=== PATIENT | female | born 1960 | race Caucasian/White ===

== ENCOUNTER → 2016-06-11 | Outpatient (REF) | payer OTHER ==
[2016-06-11 19:09] LABS: BASO % 0.4 % (0.0-1.0); EOS # 0.1 K/mm3 (0.0-0.50); EOS % 3.7 % (0.0-3.0); LARGE UNSTAINED CELL # 0.1 K/mm3 (0.0-0.4); LARGE UNSTAINED CELL % 2.5 % (0.0-4.0); LYMPH # 1.6 K/mm3 (1.5-4.5); LYMPH % 37.6 % (24.0-44.0); MEAN CORPUSCULAR HEMOGLOBIN 31.9 pg (27.0-33.0); MEAN CORPUSCULAR VOLUME 93.8 fl (80.0-96.0); MONO # 0.2 K/mm3 (0.0-0.8); MONO % 6.2 % (0.0-5.0); NEUTROPHILS # 1.9 K/mm3 (1.8-7.7); NEUTROPHILS % 49.7 % (36.0-66.0); PLATELET COUNT, AUTOMATED 215 k/mm3 (150-450); RED CELL DISTRIBUTION WIDTH 13.1 % (11.5-14.5); WHITE BLOOD COUNT 3.9 K/mm3 (4.0-10.0)
[2016-06-11 19:12] LABS: ALBUMIN 3.7 GM/DL (3.2-5.2); ALBUMIN/GLOBULIN RATIO 1.19 (1.00-1.93); ALKALINE PHOSPHATASE 43 U/L (45-117); ALT/SGPT 30 U/L (12-78); ANION GAP 6 MEQ/L (8-16); AST/SGOT 19 U/L (15-37); BILIRUBIN,TOTAL 0.4 MG/DL (0.2-1.0); BLOOD UREA NITROGEN 23 MG/DL (7-18); CALCIUM LEVEL 8.5 MG/DL (8.5-10.1); CARBON DIOXIDE LEVEL 29 MEQ/L (21-32); CHLORIDE LEVEL 108 MEQ/L (98-107); CHOLESTEROL LEVEL 235 MG/DL (<200); CREATININE FOR GFR 0.85 MG/DL (0.55-1.02); FREE T4 0.74 NG/DL (0.76-1.46); GLOMERULAR FILTRATION RATE > 60.0 (>51); GLUCOSE, FASTING 89 MG/DL (70-105); POTASSIUM SERUM 4.5 MEQ/L (3.5-5.1); SODIUM LEVEL 143 MEQ/L (136-145); TOTAL PROTEIN 6.8 GM/DL (6.4-8.2); TRIGLYCERIDES LEVEL 166 MG/DL (<150)
== END ==
LOC: M SFHCCAPE 07:59
PROVIDERS: ATTEND Physician Assistant
DX: E78.00 Pure hypercholesterolemia, unspecified (principal); Z83.3 Family history of diabetes mellitus

== ENCOUNTER → 2016-08-20 | Outpatient (REF) | payer OTHER | LOC: M SFHCCAPE 09:51 | PROVIDERS: ATTEND Physician Assistant | DX: Z01.419 Encounter for gynecological examination (general) (routine) without abnormal findings (principal) ==

== ENCOUNTER → 2016-09-25 | Outpatient (REF) | payer OTHER ==
[2016-09-25 17:11] LABS: ALBUMIN 3.9 GM/DL (3.2-5.2); ALKALINE PHOSPHATASE 42 U/L (45-117); ALT/SGPT 32 U/L (12-78); ANION GAP 10 MEQ/L (8-16); AST/SGOT 24 U/L (15-37); BILIRUBIN,TOTAL 0.5 MG/DL (0.2-1.0); BLOOD UREA NITROGEN 19 MG/DL (7-18); CALCIUM LEVEL 8.8 MG/DL (8.5-10.1); CARBON DIOXIDE LEVEL 24 MEQ/L (21-32); CHLORIDE LEVEL 103 MEQ/L (98-107); CHOLESTEROL LEVEL 224 MG/DL (<200); CREATININE FOR GFR 0.89 MG/DL (0.55-1.02); GLOMERULAR FILTRATION RATE > 60.0 (>51); GLUCOSE, FASTING 94 MG/DL (70-105); POTASSIUM SERUM 4.2 MEQ/L (3.5-5.1); SODIUM LEVEL 137 MEQ/L (136-145); TOTAL PROTEIN 6.9 GM/DL (6.4-8.2); TRIGLYCERIDES LEVEL 113 MG/DL (<150)
[2016-09-25 17:35] LABS: BASO % 0.6 % (0.0-1.0); EOS # 0.1 K/mm3 (0.0-0.50); EOS % 2.1 % (0.0-3.0); LARGE UNSTAINED CELL # 0.1 K/mm3 (0.0-0.4); LARGE UNSTAINED CELL % 3.2 % (0.0-4.0); LYMPH # 1.8 K/mm3 (1.5-4.5); LYMPH % 45.9 % (24.0-44.0); MEAN CORPUSCULAR HEMOGLOBIN 32.1 pg (27.0-33.0); MEAN CORPUSCULAR HGB CONC 34.5 g/dl (32.0-36.5); MEAN CORPUSCULAR VOLUME 93.2 fl (80.0-96.0); MONO # 0.3 K/mm3 (0.0-0.8); MONO % 6.8 % (0.0-5.0); NEUTROPHILS # 1.7 K/mm3 (1.8-7.7); NEUTROPHILS % 41.5 % (36.0-66.0); PLATELET COUNT, AUTOMATED 228 k/mm3 (150-450)
== END ==
LOC: M SFHCCAPE 07:13
PROVIDERS: ATTEND Physician Assistant
DX: E78.2 Mixed hyperlipidemia (principal); R94.6 Abnormal results of thyroid function studies

== ENCOUNTER → 2017-04-06 | Outpatient (REF) | payer OTHER ==
[2017-04-06 17:31] LABS: ALBUMIN 3.7 GM/DL (3.2-5.2); ALBUMIN/GLOBULIN RATIO 1.09 (1.00-1.93); ALKALINE PHOSPHATASE 53 U/L (45-117); ALT/SGPT 23 U/L (12-78); ANION GAP 5 MEQ/L (8-16); AST/SGOT 17 U/L (7-37); BILIRUBIN,TOTAL 0.5 MG/DL (0.2-1.0); BLOOD UREA NITROGEN 19 MG/DL (7-18); CALCIUM LEVEL 8.6 MG/DL (8.5-10.1); CARBON DIOXIDE LEVEL 29 MEQ/L (21-32); CHLORIDE LEVEL 108 MEQ/L (98-107); CHOLESTEROL LEVEL 199 MG/DL (<200); CHOLESTEROL RISK RATIO 2.763 (<5); CREATININE FOR GFR 0.86 MG/DL (0.55-1.30); FREE T4 0.81 NG/DL (0.76-1.46); GLOMERULAR FILTRATION RATE > 60.0 (>51); GLUCOSE, FASTING 96 MG/DL (70-100); HDL CHOLESTEROL 72 MG/DL (>40); LDL CHOLESTEROL 113.6 MG/DL (<100); NON-HDL-C 127 MG/DL; POTASSIUM SERUM 4.1 MEQ/L (3.5-5.1); SODIUM LEVEL 142 MEQ/L (136-145); TOTAL PROTEIN 7.1 GM/DL (6.4-8.2); TRIGLYCERIDES LEVEL 67 MG/DL (<150)
== END ==
LOC: M SFHCCAPE 07:08
DX: E78.2 Mixed hyperlipidemia (principal)
CPT/HCPCS: 84443

== ENCOUNTER → 2017-12-22 | Outpatient (REF) | payer OTHER ==
[2017-12-22 22:05] LABS: FREE T4 0.69 NG/DL (0.76-1.46)
== END ==
LOC: M SFHCCAPE 07:04
DX: E03.9 Hypothyroidism, unspecified (principal)

== ENCOUNTER → 2018-01-27 | Outpatient (CLI) | payer BC, OTHER ==
[2018-01-27 13:59] LABS: D-DIMER QUANT < 270 ng/ml (<500)
[2018-01-27 14:01] LABS: ALBUMIN/GLOBULIN RATIO 1.21 (1.00-1.93); ALKALINE PHOSPHATASE 51 U/L (45-117); ALT/SGPT 28 U/L (12-78); ANION GAP 7 MEQ/L (8-16); AST/SGOT 17 U/L (7-37); BILIRUBIN,TOTAL 0.4 MG/DL (0.2-1.0); BLOOD UREA NITROGEN 19 MG/DL (7-18); CARBON DIOXIDE LEVEL 29 MEQ/L (21-32); CHLORIDE LEVEL 103 MEQ/L (98-107); CK-MB VALUE MASS < 1.0 NG/ML (<3.6); CPK CREATINE PHOSPHOKINASE 67 U/L (26-192); CREATININE FOR GFR 0.88 MG/DL (0.55-1.30); FREE T3 3.3 PG/ML (2.2-4.0); FREE T4 0.69 NG/DL (0.76-1.46); GLOMERULAR FILTRATION RATE > 60.0 (>51); GLUCOSE, FASTING 92 MG/DL (70-100); MB/CK RELATIVE INDEX 1.49 (< OR =4); MYOGLOBIN 47 NG/ML (13-71); POTASSIUM SERUM 3.9 MEQ/L (3.5-5.1); SODIUM LEVEL 139 MEQ/L (136-145); TOTAL PROTEIN 7.3 GM/DL (6.4-8.2); TROPONIN I < 0.02 NG/ML (< 0.10)
[2018-01-27 14:03] LABS: TOTAL T3 124.9 NG/DL (60.0-181.0)
== END ==
LOC: M LAB 11:52
DX: R07.9 Chest pain, unspecified (principal); E03.9 Hypothyroidism, unspecified
CPT/HCPCS: 82550

== ENCOUNTER → 2018-02-09 | Outpatient (CLI) | payer BC, OTHER | LOC: M RAD 13:23 | DX: M79.622 Pain in left upper arm (principal); L90.5 Scar conditions and fibrosis of skin; E03.9 Hypothyroidism, unspecified; M54.2 Cervicalgia | CPT/HCPCS: 76536 ==

== ENCOUNTER → 2018-02-15 | Outpatient (REF) | payer OTHER ==
[2018-02-15 17:03] LABS: BASO % 0.6 % (0.0-1.0); EOS # 0.2 10^3/uL (0.0-0.50); EOS % 3.2 % (0.0-3.0); LYMPH # 1.9 10^3/uL (1.5-4.5); LYMPH % 40.1 % (24.0-44.0); MEAN CORPUSCULAR HEMOGLOBIN 32.3 pg (27.0-33.0); MEAN CORPUSCULAR HGB CONC 34.2 g/dl (32.0-36.5); MEAN CORPUSCULAR VOLUME 94.5 fl (80.0-96.0); MONO # 0.3 10^3/uL (0.0-0.8); MONO % 6.1 % (0.0-5.0); NEUTROPHILS # 2.4 10^3/uL (1.8-7.7); NEUTROPHILS % 49.8 % (36.0-66.0); PLATELET COUNT, AUTOMATED 223 10^3/uL (150-450); RED BLOOD COUNT 4.02 10^6/uL (4.00-5.40); WHITE BLOOD COUNT 4.7 10^3/uL (4.0-10.0)
[2018-02-15 17:14] LABS: ALBUMIN 3.5 GM/DL (3.2-5.2); ALT/SGPT 21 U/L (12-78); BILIRUBIN,TOTAL 0.4 MG/DL (0.2-1.0); BLOOD UREA NITROGEN 21 MG/DL (7-18); CALCIUM LEVEL 8.2 MG/DL (8.5-10.1); CARBON DIOXIDE LEVEL 27 MEQ/L (21-32); CHLORIDE LEVEL 108 MEQ/L (98-107); CHOLESTEROL LEVEL 219 MG/DL (<200); CREATININE FOR GFR 0.92 MG/DL (0.55-1.30); FREE T4 0.77 NG/DL (0.76-1.46); GLOMERULAR FILTRATION RATE > 60.0 (>51); GLUCOSE, FASTING 92 MG/DL (70-100); HDL CHOLESTEROL 50 MG/DL (>40); LDL CHOLESTEROL 139 MG/DL (<100); NON-HDL-C 169 MG/DL; POTASSIUM SERUM 4.2 MEQ/L (3.5-5.1); SODIUM LEVEL 144 MEQ/L (136-145); TOTAL PROTEIN 6.5 GM/DL (6.4-8.2); TRIGLYCERIDES LEVEL 152 MG/DL (<150)
[2018-02-15 17:20] LABS: HEMOGLOBIN A1c 5.4 %
== END ==
LOC: M SFHCCAPE 07:31
PROVIDERS: ATTEND Physician Assistant
DX: E03.9 Hypothyroidism, unspecified (principal); E78.2 Mixed hyperlipidemia

== ENCOUNTER → 2019-05-09 | Outpatient (REF) | payer OTHER ==
[2019-05-09 16:57] LABS: BASO % 0.5 % (0.0-1.0); EOS # 0.1 10^3/uL (0.0-0.5); EOS % 1.8 % (0.0-3.0); HEMATOCRIT 38.8 % (36.0-47.0); LYMPH # 1.6 10^3/uL (1.5-5.0); LYMPH % 39.3 % (24.0-44.0); MEAN CORPUSCULAR HEMOGLOBIN 31.6 pg (27.0-33.0); MEAN CORPUSCULAR HGB CONC 33.5 g/dl (32.0-36.5); MEAN CORPUSCULAR VOLUME 94.2 fl (80.0-96.0); MONO # 0.3 10^3/uL (0.0-0.8); MONO % 6.5 % (0.0-5.0); NEUTROPHILS % 51.4 % (36.0-66.0); PLATELET COUNT, AUTOMATED 193 10^3/uL (150-450); RED BLOOD COUNT 4.12 10^6/uL (4.00-5.40)
[2019-05-09 17:12] LABS: ALBUMIN 3.7 GM/DL (3.2-5.2); ALT/SGPT 29 U/L (12-78); BILIRUBIN,TOTAL 0.4 MG/DL (0.2-1.0); BLOOD UREA NITROGEN 22 MG/DL (7-18); CALCIUM LEVEL 8.6 MG/DL (8.5-10.1); CARBON DIOXIDE LEVEL 28 MEQ/L (21-32); CHLORIDE LEVEL 108 MEQ/L (98-107); CHOLESTEROL LEVEL 223 MG/DL (<200); CHOLESTEROL RISK RATIO 4.207 (<5); CREATININE FOR GFR 0.82 MG/DL (0.55-1.30); FREE T4 0.85 NG/DL (0.76-1.46); GLOMERULAR FILTRATION RATE > 60.0 (>51); GLUCOSE, FASTING 93 MG/DL (70-100); HDL CHOLESTEROL 53 MG/DL (>40); LDL CHOLESTEROL 149 MG/DL (<100); NON-HDL-C 170 MG/DL; POTASSIUM SERUM 4.2 MEQ/L (3.5-5.1); SODIUM LEVEL 140 MEQ/L (136-145); TOTAL PROTEIN 6.9 GM/DL (6.4-8.2); TRIGLYCERIDES LEVEL 105 MG/DL (<150)
[2019-05-09 17:20] LABS: HEMOGLOBIN A1c 5.7 %
== END ==
LOC: M SFHCCAPE 08:35
PROVIDERS: ATTEND Physician Assistant
DX: E78.2 Mixed hyperlipidemia (principal); E03.9 Hypothyroidism, unspecified; Z68.32 Body mass index [BMI] 32.0-32.9, adult

== ENCOUNTER → 2019-10-17 | Outpatient (CLI) | payer BC, OTHER ==
[~2019-10-17] MED LIST: GASTROGRAFIN SOLUTION 30ML (Q9963) As Ordered ONE; GASTROGRAFIN SOLUTION 30ML (Q9963) ONE; ISOVUE-370 76% 100ML VIAL As Ordered ONE; ISOVUE-370 76% 100ML VIAL ONE
--- NOTE | 2019-11-25 11:39 | REP ---
CT ABDOMEN AND PELVIS WITHOUT AND WITH IV CONTRAST: WITH ORAL CONTRAST HISTORY: Right flank pain. COMPARISON: None. CT CONTRAST DOSE: 100 mL of intravenous Isovue-[address] FINDINGS: Digital preliminary activities director scouting radiograph demonstrates an unremarkable bowel gas pattern. The lung bases are clear on axial CT images. No pleural effusion or upper abdominal ascites is seen. The liver and the spleen are normal in size and homogeneous in texture on pre- and postcontrast images. No abnormality is noted in the gallbladder or the pancreas. Small and large bowel loops are normal in the abdomen and pelvis. No retroperitoneal mass or adenopathy is observed. Normal caliber aorta is seen. The kidneys enhance symmetrically and are morphologically intact. No hydronephrosis or mass lesion is seen. There is a tiny cortical cyst in the upper pole of the right kidney. No urinary tract calculus is seen. Urinary bladder is intact. The uterus is tipped to the right. No uterine or ovarian mass lesion is seen. Bone window settings show no bony destructive lesion. A short normal appendix is seen in the right lower quadrant. IMPRESSION: No acute abdominal or pelvic abnormality. MTDD
== END ==
LOC: M RAD 12:17
PROVIDERS: ATTEND Physician Assistant
DX: R10.9 Unspecified abdominal pain (principal)
CPT/HCPCS: 74170; Q9963; Q9967

== ENCOUNTER 2020-03-24 11:51 | Emergency (ER) | payer BC, OTHER ==
[~2020-03-24] VITALS: Ht 167.6 cm; Wt 86.4 kg
[2020-03-24 12:26] LABS: BASO % 0.4 % (0.0-1.0); EOS % 0.6 % (0.0-3.0); HEMATOCRIT 37.5 % (36.0-47.0); HEMOGLOBIN 12.3 g/dl (12.0-15.5); LYMPH # 1.5 10^3/uL (1.5-5.0); LYMPH % 29.4 % (24.0-44.0); MEAN CORPUSCULAR HEMOGLOBIN 31.6 pg (27.0-33.0); MEAN CORPUSCULAR HGB CONC 32.8 g/dl (32.0-36.5); MEAN CORPUSCULAR VOLUME 96.4 fl (80.0-96.0); MONO # 0.3 10^3/uL (0.0-0.8); MONO % 5.8 % (0.0-5.0); NEUTROPHILS # 3.3 10^3/uL (1.5-8.5); NEUTROPHILS % 63.2 % (36.0-66.0); PLATELET COUNT, AUTOMATED 183 10^3/uL (150-450); RED BLOOD COUNT 3.89 10^6/uL (4.00-5.40); WHITE BLOOD COUNT 5.2 10^3/uL (4.0-10.0)
[2020-03-24] MEDS ORDERED: ASPIRIN 81 MG CHEW TABLET PO ONE (12:30)
[2020-03-24 12:42] LABS: INR 0.83; PROTHROMBIN TIME 11.6 SECONDS (12.5-14.3)
[2020-03-24 12:43] LABS: PARTIAL THROMBOPLASTIN TIME 20.1 SECONDS (24.2-38.5)
[2020-03-24 12:46] LABS: ERYTHROCYTE SEDIMENTATION RATE 10 mm/hr (0-30)
[2020-03-24 13:03] LABS: ALBUMIN 3.7 GM/DL (3.2-5.2); ALT/SGPT 39 U/L (12-78); BILIRUBIN,DIRECT 0.1 MG/DL (0.0-0.2); BILIRUBIN,TOTAL 0.3 MG/DL (0.2-1.0); BLOOD UREA NITROGEN 15 MG/DL (7-18); CALCIUM LEVEL 8.7 MG/DL (8.5-10.1); CARBON DIOXIDE LEVEL 27 MEQ/L (21-32); CHLORIDE LEVEL 111 MEQ/L (98-107); CK-MB VALUE MASS < 1.0 NG/ML (<3.6); CPK CREATINE PHOSPHOKINASE 70 U/L (26-192); CREATININE FOR GFR 0.89 MG/DL (0.55-1.30); FREE T4 0.76 NG/DL (0.76-1.46); GLOMERULAR FILTRATION RATE > 60.0 (>51); GLUCOSE, FASTING 103 MG/DL (70-100); LIPASE 135 U/L (73-393); MB/CK RELATIVE INDEX 1.43 (< OR =4); NT-PRO BNP 29 PG/ML (<125); POTASSIUM SERUM 4.1 MEQ/L (3.5-5.1); SODIUM LEVEL 143 MEQ/L (136-145); TOTAL PROTEIN 6.7 GM/DL (6.4-8.2); TROPONIN I < 0.02 NG/ML (< 0.10)
[2020-03-24 13:19] LABS: D-DIMER QUANT < 270 ng/ml (<500)
--- NOTE | 2020-03-24 14:09 | REP ---
INDICATION: CHEST PAIN. COMPARISON: None. TECHNIQUE: Portable FINDINGS: The technique utilized in obtaining the radiograph has magnified the cardiac silhouette and accentuated the interstitial markings. The superior mediastinal structures are midline. The cardiac silhouette is unremarkable in size, shape, and position. The diaphragmatic surfaces of the lungs are regular, and the costophrenic angles are clear. The pulmonary fong are clear. The imaged osseous structures are intact. IMPRESSION: There is no acute cardiopulmonary disease. <Electronically signed by Chico Flores > 03/24/20 [id number]
[2020-03-24] MEDS ORDERED: IBUP-1022 PO (14:28)
[2020-03-24 14:30] VITALS: BP 126/79
--- NOTE | 2020-03-25 08:11 | ECGEPIP ---
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
== END 2020-03-24 14:43 | disposition home or self-care (01) ==
LOC: EDBD 11:51 → M ED 11:51
DX: R07.89 Other chest pain (principal); M54.2 Cervicalgia; I45.19 Other right bundle-branch block

== ENCOUNTER → 2020-04-10 | Outpatient (CLI) | payer BC, OTHER ==
[~2020-04-10] MED LIST changes: -GASTROGRAFIN SOLUTION 30ML (Q9963) As Ordered ONE; -GASTROGRAFIN SOLUTION 30ML (Q9963) ONE; +IBUP-1022 PO; -ISOVUE-370 76% 100ML VIAL As Ordered ONE; -ISOVUE-370 76% 100ML VIAL ONE
--- NOTE | 2020-04-11 06:50 | REP ---
INDICATION: PAIN IN LEG COMPARISON: None. TECHNIQUE: Medeiros scale and color Doppler evaluation bilateral lower extremities using linear high frequency transducer. FINDINGS: Ultrasound examination of the right and left lower extremity deep venous structures from the common femoral vein to the popliteal vein demonstrates normal compressibility flow and wave patterns in response to respiration and augmentation. There is no evidence for deep venous thrombosis. IMPRESSION: No evidence for deep venous thrombosis. <Electronically signed by Reinaldo Shukla > 04/11/20 0680
--- NOTE | 2020-04-11 06:50 | REP ---
INDICATION: PAIN IN LEG COMPARISON: None. TECHNIQUE: Real time medeiros scale and color Doppler evaluation of the bilateral lower extremity arterial vasculature using linear high frequency transducer. FINDINGS: Medeiros scale and color images demonstrate mild amounts of atheromatous plaquing without focal stenosis or occlusion identified. Doppler interrogation demonstrates normal triphasic arterial wave forms and velocities bilaterally. Right RHEA: 0.9 Left RHEA: 0.9 Peak systolic velocities (cm/sec) Common femoral artery: Right 70.5; Left 82.8 Profunda femoris: Right 61.2; Left 59.4 SFA (proximal): Right 76.6; Left 77.8 SFA (mid): Right 87.6; Left 94.0 SFA (distal): Right 85.9; Left 84.6 Popliteal artery: Right 66.2; Left 62.3 ELENI (prox.): Right 50.4; Left 31.0 Tibioperoneal trunk: Right 71.3; Left 50.0 EMR IMPLEMENTATION SPECIALIST (prox.): Right 59.8; Left 39.0 EMR IMPLEMENTATION SPECIALIST (distal): Right 66.2; Left 89.7 ELENI (distal): Right 100.2; Left 78.4 IMPRESSION: Mild atheromatous changes without focal occlusion or stenosis. <Electronically signed by Reinaldo Shukla > 04/11/20 0646
== END ==
LOC: M RAD 12:55
PROVIDERS: ATTEND Physician Assistant
DX: M79.606 Pain in leg, unspecified (principal)

== ENCOUNTER → 2020-04-11 | Outpatient (REF) | payer OTHER ==
[2020-04-11 12:36] LABS: BLOOD UREA NITROGEN 19 MG/DL (7-18); CALCIUM LEVEL 8.9 MG/DL (8.5-10.1); CARBON DIOXIDE LEVEL 30 MEQ/L (21-32); CHLORIDE LEVEL 107 MEQ/L (98-107); CHOLESTEROL LEVEL 285 MG/DL (<200); CHOLESTEROL RISK RATIO 4.596 (<5); CREATININE FOR GFR 0.98 MG/DL (0.55-1.30); FREE T4 0.76 NG/DL (0.76-1.46); GLOMERULAR FILTRATION RATE > 60.0 (>51); GLUCOSE, FASTING 97 MG/DL (70-100); HDL CHOLESTEROL 62 MG/DL (>40); LDL CHOLESTEROL 195 MG/DL (<100); MAGNESIUM LEVEL 2.3 MG/DL (1.8-2.4); NON-HDL-C 223 MG/DL; POTASSIUM SERUM 4.4 MEQ/L (3.5-5.1); SODIUM LEVEL 144 MEQ/L (136-145); TRIGLYCERIDES LEVEL 139 MG/DL (<150)
== END ==
LOC: M LABDRAWC 11:24
PROVIDERS: ATTEND Physician Assistant
DX: R07.2 Precordial pain (principal)

== ENCOUNTER → 2020-05-25 | Outpatient (REF) | payer OTHER ==
[~2020-05-25] MED LIST changes: +ECOT81TA5 PO; +NITR0.4S14 SL
[2020-05-25 16:17] LABS: RHEUMATOID FACTOR QUANT < 10.0 IU/ML (<15.0); TOTAL PROTEIN 6.9 GM/DL (6.4-8.2)
[2020-05-25 16:25] LABS: VITAMIN B12 LEVEL 643 PG/ML
[2020-05-25 16:26] LABS: FOLATE 21.3 NG/ML
[2020-05-25 16:38] LABS: HEMOGLOBIN A1c 5.4 %
== END ==
LOC: M LABDRAWC 15:35
PROVIDERS: ATTEND Psychiatry & Neurology Neurology
DX: E53.8 Deficiency of other specified B group vitamins (principal); E11.40 Type 2 diabetes mellitus with diabetic neuropathy, unspecified

== ENCOUNTER 2020-05-28 10:32 | Emergency (ER) | payer BC, OTHER ==
[~2020-05-28] VITALS: Ht 165.1 cm; Wt 89.2 kg
[~2020-05-28 10:32] MED LIST changes: -ECOT81TA5 PO; -NITR0.4S14 SL
--- NOTE | 2020-05-28 11:20 | REP ---
INDICATION: CHEST PAIN COMPARISON: 03/24/2020 TECHNIQUE: Portable AP view of the chest FINDINGS: The mediastinum and cardiac silhouette are stable and within normal limits for portable technique. The lung fong are clear without acute consolidation, effusion, or pneumothorax. Skeletal structures are intact. IMPRESSION: No acute cardiopulmonary process appreciated. <Electronically signed by Reinaldo Shukla > 05/28/20 [id number]
[2020-05-28 11:21] LABS: BASO % 0.6 % (0.0-1.0); EOS # 0.2 10^3/uL (0.0-0.5); EOS % 2.8 % (0.0-3.0); HEMATOCRIT 39.8 % (36.0-47.0); LYMPH # 1.6 10^3/uL (1.5-5.0); LYMPH % 30.4 % (24.0-44.0); MEAN CORPUSCULAR HEMOGLOBIN 31.3 pg (27.0-33.0); MEAN CORPUSCULAR HGB CONC 32.7 g/dl (32.0-36.5); MEAN CORPUSCULAR VOLUME 95.7 fl (80.0-96.0); MONO # 0.5 10^3/uL (0.0-0.8); MONO % 8.3 % (2.0-8.0); NEUTROPHILS # 3.1 10^3/uL (1.5-8.5); NEUTROPHILS % 57.5 % (36.0-66.0); PLATELET COUNT, AUTOMATED 201 10^3/uL (150-450); RED BLOOD COUNT 4.16 10^6/uL (4.00-5.40); WHITE BLOOD COUNT 5.4 10^3/uL (4.0-10.0)
[2020-05-28] MEDS ORDERED: ECOT81TA5 PO (11:24)
[2020-05-28] MEDS ORDERED: NITR0.4S14 SL (11:24)
[2020-05-28] MEDS ORDERED: ISOVUE-370 76% 100ML VIAL As Ordered ONE (11:39)
[2020-05-28 11:55] LABS: BLOOD UREA NITROGEN 17 MG/DL (7-18); CARBON DIOXIDE LEVEL 29 MEQ/L (21-32); CHLORIDE LEVEL 110 MEQ/L (98-107); CREATININE FOR GFR 0.87 MG/DL (0.55-1.30); GLOMERULAR FILTRATION RATE > 60.0 (>51); GLUCOSE, FASTING 97 MG/DL (70-100); POTASSIUM SERUM 4.2 MEQ/L (3.5-5.1); SODIUM LEVEL 143 MEQ/L (136-145)
--- NOTE | 2020-05-28 12:06 | REP ---
INDICATION: Hx breast Ca, r/o left PE COMPARISON: None. TECHNIQUE: Axial contrast enhanced images from the thoracic inlet to the upper abdomen using pulmonary embolus technique with multiplanar re-formations. 75 ml Isovue 370 intravenous contrast material administered without complication. This CT examination was performed using the following dose reduction techniques: Automated exposure control, adjustment of mA and/or kv according to the patient's size, and use of iterative reconstruction technique. FINDINGS: Satisfactory enhancement of the pulmonary vasculature is achieved and no filling defects are identified to suggest pulmonary embolus. Further evaluation of the mediastinum demonstrates normal thoracic aorta, heart and pericardium. The bilateral lung fong are well aerated and clear without consolidation pleural effusion or pneumothorax. Tracheobronchial tree is patent. No nodule or mass lesion is identified. No adenopathy noted. Surrounding musculoskeletal structures intact IMPRESSION: No evidence for pulmonary embolus. No acute mediastinal or pleural parenchymal process. <Electronically signed by Reinaldo Shukla > 05/28/20 2038
[2020-05-28 13:32] VITALS: BP 137/79
--- NOTE | 2020-05-28 20:01 | ECGEPIP ---
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
--- NOTE | 2020-05-28 20:03 | ECGEPIP ---
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
== END 2020-05-28 15:02 | disposition home or self-care (01) ==
LOC: M ED 10:32
DX: R07.89 Other chest pain (principal); I45.10 Unspecified right bundle-branch block; E78.5 Hyperlipidemia, unspecified; Z87.891 Personal history of nicotine dependence
CPT/HCPCS: 71045; 71275; 80047; 80048; 84484; 85025; 93005; 93041; 94760; 99285; Q9967

== ENCOUNTER → 2020-10-01 | Outpatient (REF) | payer OTHER ==
[~2020-10-01] MED LIST changes: +ECOT81TA5 PO; +NITR0.4S14 SL
[2020-10-01 17:31] LABS: BASO % 0.7 % (0.0-1.0); EOS # 0.1 10^3/uL (0.0-0.5); EOS % 1.6 % (0.0-3.0); HEMATOCRIT 41.2 % (36.0-47.0); HEMOGLOBIN 13.6 g/dl (12.0-15.5); LYMPH % 45.8 % (24.0-44.0); MEAN CORPUSCULAR HEMOGLOBIN 30.8 pg (27.0-33.0); MEAN CORPUSCULAR VOLUME 93.2 fl (80.0-96.0); MONO # 0.5 10^3/uL (0.0-0.8); MONO % 10.6 % (2.0-8.0); NEUTROPHILS # 1.8 10^3/uL (1.5-8.5); NEUTROPHILS % 40.9 % (36.0-66.0); PLATELET COUNT, AUTOMATED 227 10^3/uL (150-450); RED BLOOD COUNT 4.42 10^6/uL (4.00-5.40); WHITE BLOOD COUNT 4.5 10^3/uL (4.0-10.0)
[2020-10-01 17:47] LABS: ALBUMIN 3.9 GM/DL (3.2-5.2); ALT/SGPT 43 U/L (12-78); BILIRUBIN,TOTAL 0.5 MG/DL (0.2-1.0); BLOOD UREA NITROGEN 17 MG/DL (7-18); CALCIUM LEVEL 8.8 MG/DL (8.5-10.1); CARBON DIOXIDE LEVEL 29 MEQ/L (21-32); CHLORIDE LEVEL 107 MEQ/L (98-107); CHOLESTEROL LEVEL 185 MG/DL (<200); CHOLESTEROL RISK RATIO 4.512 (<5); CREATININE FOR GFR 0.92 MG/DL (0.55-1.30); GLOMERULAR FILTRATION RATE > 60.0 (>51); GLUCOSE, FASTING 91 MG/DL (70-100); HDL CHOLESTEROL 41 MG/DL (>40); LDL CHOLESTEROL 115 MG/DL (<100); NON-HDL-C 144 MG/DL; POTASSIUM SERUM 4.3 MEQ/L (3.5-5.1); SODIUM LEVEL 141 MEQ/L (136-145); TOTAL PROTEIN 6.9 GM/DL (6.4-8.2); TRIGLYCERIDES LEVEL 144 MG/DL (<150)
== END ==
LOC: M SFHCCAPE 07:02
PROVIDERS: ATTEND Physician Assistant
DX: E03.9 Hypothyroidism, unspecified (principal); E78.2 Mixed hyperlipidemia

== ENCOUNTER → 2020-12-31 | Outpatient (REF) | payer OTHER ==
[2020-12-31 18:15] LABS: BLOOD UREA NITROGEN 18 MG/DL (7-18); CREATININE FOR GFR 0.94 MG/DL (0.55-1.30); GLOMERULAR FILTRATION RATE > 60.0 (>45)
== END ==
LOC: M LABDRWCV 15:43
PROVIDERS: ATTEND Obstetrics & Gynecology
DX: N63.21 Unspecified lump in the left breast, upper outer quadrant (principal)

== ENCOUNTER → 2021-01-14 | Outpatient (CLI) | payer BC, OTHER ==
[~2021-01-14] MED LIST changes: +PROHANCE 279.3MG/ML 15ML VIAL As Ordered ONE; +PROHANCE 279.3MG/ML 5ML VIAL As Ordered ONE
--- NOTE | 2021-01-14 17:01 | REP ---
INDICATION: LT BREAST LUMP. Prior history of treated left breast carcinoma. COMPARISON: Comparison MRI study is from January 01, 2009. TECHNIQUE: Three Felicia MRI imaging was performed with a dedicated breast coil. Axial, coronal, and sagittal T1 and T2 weighted scans were obtained with and without fat saturation in the usual fashion. The study includes dynamically acquired post gadolinium-enhanced imaging with image subtraction. Maximum intensity projection and multi planar reformation imaging is included as well. This study is interpreted with the aid of TrusteerD, an FDA approved computer aided detection (CAD) software program, on a dedicated breast MRI workstation. The gadolinium enhancement dose is 17 mL of intravenous ProHance. FINDINGS: There is a mild amount of fibroglandular tissue bilaterally corresponding with the mammographic pattern. There is a linear area of fibrosis in the upper outer quadrant on the left breast as previously noted. There are foci of magnetic field susceptibility artifact in the left axilla consistent with surgical clips. There is no evidence of axillary adenopathy or significant breast cystic change. There is minimal background parenchymal enhancement. High-resolution pre and post-contrast T1 and T2 weighted scans show no suspicious morphologic abnormality in either breast. Dynamically acquired sequential postcontrast images show no suspicious area of enhancement and washout kinetics in either breast to suggest malignancy. Subtraction images show no additional abnormality. IMPRESSION: BI-RADS category 2 benign bilateral breast MRI findings. Post treatment changes left breast. No suspicious abnormality. <Electronically signed by Rufus Carter > 01/14/21 0344
== END ==
LOC: M RAD 08:31
PROVIDERS: ATTEND Obstetrics & Gynecology
DX: N60.32 Fibrosclerosis of left breast (principal); Z85.3 Personal history of malignant neoplasm of breast
CPT/HCPCS: A9576; C8908

== ENCOUNTER → 2021-04-08 | Outpatient (REF) | payer OTHER ==
[~2021-04-08] MED LIST changes: -PROHANCE 279.3MG/ML 15ML VIAL As Ordered ONE; -PROHANCE 279.3MG/ML 5ML VIAL As Ordered ONE
[2021-04-08 16:52] LABS: BASO % 0.3 % (0.0-1.0); EOS # 0.1 10^3/uL (0.0-0.5); EOS % 1.4 % (0.0-3.0); HEMATOCRIT 37.9 % (36.0-47.0); HEMOGLOBIN 12.5 g/dl (12.0-15.5); LYMPH # 1.9 10^3/uL (1.5-5.0); LYMPH % 31.6 % (24.0-44.0); MEAN CORPUSCULAR HEMOGLOBIN 31.2 pg (27.0-33.0); MEAN CORPUSCULAR VOLUME 94.5 fl (80.0-96.0); MONO # 0.3 10^3/uL (0.0-0.8); MONO % 5.7 % (2.0-8.0); NEUTROPHILS # 3.6 10^3/uL (1.5-8.5); NEUTROPHILS % 60.8 % (36.0-66.0); PLATELET COUNT, AUTOMATED 237 10^3/uL (150-450); RED BLOOD COUNT 4.01 10^6/uL (4.00-5.40); WHITE BLOOD COUNT 5.9 10^3/uL (4.0-10.0)
[2021-04-08 17:27] LABS: ALBUMIN 3.8 GM/DL (3.2-5.2); ALT/SGPT 30 U/L (12-78); BILIRUBIN,TOTAL 0.4 MG/DL (0.2-1.0); BLOOD UREA NITROGEN 24 MG/DL (7-18); CALCIUM LEVEL 9.1 MG/DL (8.8-10.2); CARBON DIOXIDE LEVEL 26 MEQ/L (21-32); CHLORIDE LEVEL 109 MEQ/L (98-107); CHOLESTEROL LEVEL 232 MG/DL (<200); CHOLESTEROL RISK RATIO 4.377 (<5); CREATININE FOR GFR 0.96 MG/DL (0.55-1.30); GLOMERULAR FILTRATION RATE > 60.0 (>45); GLUCOSE, FASTING 95 MG/DL (70-100); HDL CHOLESTEROL 53 MG/DL (>40); LDL CHOLESTEROL 160 MG/DL (<100); NON-HDL-C 179 MG/DL; POTASSIUM SERUM 4.2 MEQ/L (3.5-5.1); SODIUM LEVEL 143 MEQ/L (136-145); TRIGLYCERIDES LEVEL 95 MG/DL (<150)
[2021-04-08 17:29] LABS: TOTAL 25(OH) VITAMIN D 45.4 NG/ML (30.0-100.0)
== END ==
LOC: M SFHCCAPE 07:21
PROVIDERS: ATTEND Physician Assistant
DX: E78.2 Mixed hyperlipidemia (principal)

== ENCOUNTER → 2021-06-11 | Outpatient (CLI) | payer BC, OTHER ==
[~2021-06-11] MED LIST changes: +CALC500T52 PO; +FISH1000 PO; +VITAD400CA FT; +VITMTA PO
== END ==
LOC: M WHC 12:24
PROVIDERS: ATTEND Physician Assistant
DX: M79.605 Pain in left leg (principal); M71.22 Synovial cyst of popliteal space [Baker], left knee

== ENCOUNTER → 2021-06-12 | Outpatient (REF) | payer OTHER ==
[2021-06-12 16:00] LABS: APPEARANCE, URINE CLEAR (CLEAR); BACTERIA, URINE AUTO NEGATIVE (NEGATIVE); BILIRUBIN, URINE AUTO NEGATIVE (NEGATIVE); BLOOD, URINE BLOOD NEGATIVE (NEGATIVE); COLOR, URINE YELLOW (YELLOW); GLUCOSE, URINE (UA) AUTO NEGATIVE (NEGATIVE); KETONE, URINE AUTO NEGATIVE (NEGATIVE); LEUKOCYTE ESTERASE, URINE AUTO 2+ (NEGATIVE); NITRITE, URINE AUTO NEGATIVE (NEGATIVE); PROTEIN, URINE AUTO NEGATIVE (NEGATIVE); RBC, URINE AUTO 1 /HPF (0-3); SPECIFIC GRAVITY URINE AUTO 1.021 (1.002-1.035); SQUAMOUS EPITHELIAL CELL UR AU 2 /HPF (0-6); UROBILINOGEN, URINE AUTO 0.2 mg/dL (0.0-2.0); WBC, URINE AUTO 6 /HPF (0-3)
== END ==
LOC: M SFHCCAPE 07:19
PROVIDERS: ATTEND Physician Assistant
DX: R82.90 Unspecified abnormal findings in urine (principal)

== ENCOUNTER → 2021-06-21 | Outpatient (CLI) | payer OTHER | LOC: M LABSMTC 10:04 | PROVIDERS: ATTEND Anesthesiology | DX: Z01.812 Encounter for preprocedural laboratory examination (principal); Z20.822 Contact with and (suspected) exposure to COVID-19 ==

== ENCOUNTER 2021-06-26 07:02 | Day surgery (SDC) | payer BC, OTHER ==
[~2021-06-26] VITALS: Ht 165.1 cm; Wt 87.1 kg
[~2021-06-26 07:02] MED LIST changes: +NS 1,000 ML IV ONE
[2021-06-26] MEDS ORDERED: LIDOCAINE 2% 100MG/5ML SDV (FOR ANES.) As Ordered ONE (08:06)
[2021-06-26] MEDS ORDERED: propofoL 200 MG/20 ML VIAL As Ordered ONE (08:06)
[2021-06-26 08:54] VITALS: BP 122/72
== END 2021-06-26 08:56 | disposition home or self-care (01) ==
LOC: M OPP 07:02
PROVIDERS: ATTEND Surgery
DX: Z12.11 Encounter for screening for malignant neoplasm of colon (principal); K64.1 Second degree hemorrhoids; Q43.8 Other specified congenital malformations of intestine; E78.5 Hyperlipidemia, unspecified; Z78.0 Asymptomatic menopausal state; Z79.899 Other long term (current) drug therapy

== ENCOUNTER → 2021-07-01 | Outpatient (CLI) | payer BC, OTHER ==
[~2021-07-01] MED LIST changes: +ISOVUE-370 76% 100ML VIAL As Ordered ONE; -NS 1,000 ML IV ONE
== END ==
LOC: M RAD 17:11
PROVIDERS: ATTEND Physician Assistant
DX: R10.31 Right lower quadrant pain (principal); N28.1 Cyst of kidney, acquired; K76.0 Fatty (change of) liver, not elsewhere classified; K57.30 Diverticulosis of large intestine without perforation or abscess without bleeding
CPT/HCPCS: 74178; Q9967

== ENCOUNTER → 2021-07-16 | Outpatient (REF) | payer OTHER ==
[~2021-07-16] MED LIST changes: -ISOVUE-370 76% 100ML VIAL As Ordered ONE
[2021-07-16 16:32] LABS: APPEARANCE, URINE HAZY (CLEAR); BACTERIA, URINE AUTO 1+ (NEGATIVE); BILIRUBIN, URINE AUTO NEGATIVE (NEGATIVE); BLOOD, URINE BLOOD NEGATIVE (NEGATIVE); COLOR, URINE YELLOW (YELLOW); GLUCOSE, URINE (UA) AUTO NEGATIVE (NEGATIVE); KETONE, URINE AUTO NEGATIVE (NEGATIVE); LEUKOCYTE ESTERASE, URINE AUTO 3+ (NEGATIVE); NITRITE, URINE AUTO NEGATIVE (NEGATIVE); PROTEIN, URINE AUTO NEGATIVE (NEGATIVE); RBC, URINE AUTO 5 /HPF (0-3); SPECIFIC GRAVITY URINE AUTO 1.013 (1.002-1.035); SQUAMOUS EPITHELIAL CELL UR AU 6 /HPF (0-6); TRANSITIONAL EPITHELIAL AUTO <1 /HPF; UROBILINOGEN, URINE AUTO 0.2 mg/dL (0.0-2.0); WBC, URINE AUTO 32 /HPF (0-3)
== END ==
LOC: M SFHCCAPE 08:42
PROVIDERS: ATTEND Physician Assistant
DX: R82.90 Unspecified abnormal findings in urine (principal)

== ENCOUNTER → 2021-08-02 | Outpatient (CLI) | payer BC, OTHER | LOC: M SOG 08:06 | PROVIDERS: ATTEND Orthopaedic Surgery | DX: M25.562 Pain in left knee (principal); M25.762 Osteophyte, left knee ==

== ENCOUNTER → 2021-08-02 | Outpatient (CLI) | payer BC, OTHER | LOC: M PLAIMG 06:40 | PROVIDERS: ATTEND Orthopaedic Surgery | DX: M47.816 Spondylosis without myelopathy or radiculopathy, lumbar region (principal); M47.815 Spondylosis without myelopathy or radiculopathy, thoracolumbar region ==

== ENCOUNTER → 2021-08-16 | Outpatient (CLI) | payer BC, OTHER | LOC: M PLAIMG 12:11 | PROVIDERS: ATTEND Orthopaedic Surgery | DX: M25.562 Pain in left knee (principal); M94.262 Chondromalacia, left knee; M71.22 Synovial cyst of popliteal space [Baker], left knee ==

== ENCOUNTER → 2021-10-14 | Outpatient (REF) | payer OTHER ==
[2021-10-14 18:02] LABS: BASO % 0.5 % (0.0-1.0); EOS # 0.1 10^3/uL (0.0-0.5); EOS % 2.1 % (0.0-3.0); HEMATOCRIT 43.3 % (36.0-47.0); HEMOGLOBIN 13.8 g/dl (12.0-15.5); LYMPH # 2.3 10^3/uL (1.5-5.0); LYMPH % 38.3 % (24.0-44.0); MEAN CORPUSCULAR HEMOGLOBIN 31.1 pg (27.0-33.0); MEAN CORPUSCULAR HGB CONC 31.9 g/dl (32.0-36.5); MEAN CORPUSCULAR VOLUME 97.5 fl (80.0-96.0); MONO # 0.4 10^3/uL (0.0-0.8); MONO % 7.3 % (2.0-8.0); NEUTROPHILS # 3.1 10^3/uL (1.5-8.5); PLATELET COUNT, AUTOMATED 253 10^3/uL (150-450); RED BLOOD COUNT 4.44 10^6/uL (4.00-5.40); WHITE BLOOD COUNT 6.1 10^3/uL (4.0-10.0)
[2021-10-14 19:07] LABS: ALBUMIN 3.7 GM/DL (3.2-5.2); ALT/SGPT 20 U/L (12-78); BILIRUBIN,TOTAL 0.4 MG/DL (0.2-1.0); BLOOD UREA NITROGEN 19 MG/DL (7-18); CALCIUM LEVEL 9.2 MG/DL (8.8-10.2); CARBON DIOXIDE LEVEL 28 MEQ/L (21-32); CHLORIDE LEVEL 106 MEQ/L (98-107); CREATININE FOR GFR 0.89 MG/DL (0.55-1.30); GLOMERULAR FILTRATION RATE > 60.0 (>45); GLUCOSE, FASTING 78 MG/DL (70-100); POTASSIUM SERUM 4.6 MEQ/L (3.5-5.1); SODIUM LEVEL 139 MEQ/L (136-145); TOTAL PROTEIN 7.1 GM/DL (6.4-8.2)
== END ==
LOC: M SFHCCAPE 07:12
PROVIDERS: ATTEND Physician Assistant
DX: R10.9 Unspecified abdominal pain (principal); E78.2 Mixed hyperlipidemia; E03.9 Hypothyroidism, unspecified

== ENCOUNTER → 2021-10-16 | Outpatient (REF) | payer OTHER ==
[2021-10-16 20:22] LABS: APPEARANCE, URINE MANUAL CLEAR (CLEAR); COLOR, URINE MANUAL YELLOW (YELLOW)
[2021-10-16 20:23] LABS: BILIRUBIN, URINE MANUAL NEGATIVE (NEGATIVE); BLOOD URINE MANUAL NEGATIVE (NEGATIVE); GLUCOSE, URINE (UA) MANUAL NEGATIVE (NEGATIVE); KETONE, URINE MANUAL NEGATIVE (NEGATIVE); LEUKOCYTE ESTERASE, URINE MAN POSITIVE (NEGATIVE); NITRITE, URINE MANUAL NEGATIVE (NEGATIVE); PROTEIN, URINE MANUAL NEGATIVE (NEGATIVE); SPECIFIC GRAVITY,URINE MANUAL 1.025 (1.002-1.035); UROBILINOGEN, URINE MANUAL NORMAL (NORMAL)
[2021-10-16 21:19] LABS: CALCIUM OXALATE CRYSTALS,URINE MOD AMOUNT /hpf; RBC, URINE NONE SEEN /hpf (0-3); RENAL EPITHELIAL CELLS, URINE SMALL AMOUNT /hpf; SQUAMOUS EPITHELIAL CELL URINE SMALL AMOUNT /hpf (SMALL AMT); TRANSITIONAL EPI CELLS, URINE SMALL AMOUNT /hpf
[2021-10-16 21:20] LABS: BACTERIA, URINE NONE SEEN; HYALINE CAST, URINE NONE SEEN /lpf (0-1)
== END ==
LOC: M SFHCCAPE 08:43
PROVIDERS: ATTEND Physician Assistant
DX: R82.90 Unspecified abnormal findings in urine (principal)

== ENCOUNTER → 2021-10-17 | Outpatient (CLI) | payer BC, OTHER | LOC: M WHC 09:44 | PROVIDERS: ATTEND Obstetrics & Gynecology | DX: C50.911 Malignant neoplasm of unspecified site of right female breast (principal); R93.89 Abnormal findings on diagnostic imaging of other specified body structures; E66.9 Obesity, unspecified ==

== ENCOUNTER → 2021-11-22 | Outpatient (CLI) | payer BC, OTHER | LOC: M RAD 09:12 | PROVIDERS: ATTEND Physician Assistant | DX: R30.0 Dysuria (principal) ==

== ENCOUNTER → 2022-01-15 | Outpatient (REF) | payer OTHER ==
[2022-01-15 19:19] LABS: BASO % 0.6 % (0.0-1.0); EOS # 0.1 10^3/uL (0.0-0.5); EOS % 2.1 % (0.0-3.0); HEMATOCRIT 41.7 % (36.0-47.0); HEMOGLOBIN 13.3 g/dl (12.0-15.5); LYMPH # 1.8 10^3/uL (1.5-5.0); LYMPH % 34.3 % (24.0-44.0); MEAN CORPUSCULAR HEMOGLOBIN 31.6 pg (27.0-33.0); MEAN CORPUSCULAR HGB CONC 31.9 g/dl (32.0-36.5); MONO # 0.3 10^3/uL (0.0-0.8); NEUTROPHILS % 56.3 % (36.0-66.0); PLATELET COUNT, AUTOMATED 225 10^3/uL (150-450); RED BLOOD COUNT 4.21 10^6/uL (4.00-5.40); WHITE BLOOD COUNT 5.4 10^3/uL (4.0-10.0)
[2022-01-15 19:34] LABS: APPEARANCE, URINE MANUAL CLEAR (CLEAR); COLOR, URINE MANUAL YELLOW (YELLOW)
[2022-01-15 19:36] LABS: BILIRUBIN, URINE MANUAL NEGATIVE (NEGATIVE); BLOOD URINE MANUAL NEGATIVE (NEGATIVE); GLUCOSE, URINE (UA) MANUAL NEGATIVE (NEGATIVE); KETONE, URINE MANUAL NEGATIVE (NEGATIVE); LEUKOCYTE ESTERASE, URINE MAN TRACE (NEGATIVE); NITRITE, URINE MANUAL NEGATIVE (NEGATIVE); PROTEIN, URINE MANUAL NEGATIVE (NEGATIVE); UROBILINOGEN, URINE MANUAL NORMAL (NORMAL)
[2022-01-15 19:55] LABS: RBC, URINE 0-1 /hpf (0-3); SQUAMOUS EPITHELIAL CELL URINE SMALL AMOUNT /hpf (SMALL AMT)
[2022-01-15 19:56] LABS: BACTERIA, URINE SMALL AMOUNT; HYALINE CAST, URINE NONE SEEN /lpf (0-1)
[2022-01-15 20:34] LABS: ALBUMIN 3.8 G/DL (3.2-5.2); ALT/SGPT 25 U/L (7.0-40); BILIRUBIN,TOTAL 0.5 MG/DL (0.3-1.2); BLOOD UREA NITROGEN 16 MG/DL (9-23); CALCIUM LEVEL 9.8 MG/DL (8.3-10.6); CARBON DIOXIDE LEVEL 28 MMOL/L (20-31); CHLORIDE LEVEL 102 MMOL/L (98-107); CREATININE FOR GFR 0.91 MG/DL (0.55-1.30); FREE T4 1.09 NG/DL (0.89-1.76); GLOMERULAR FILTRATION RATE > 60.0 (>45); GLUCOSE, FASTING 78 MG/DL (74-106); POTASSIUM SERUM 4.1 MMOL/L (3.5-5.1); SODIUM LEVEL 141 MMOL/L (136-145); THYROID STIMULATING HORMONE 2.653 uIU/ML (0.55-4.78); TOTAL PROTEIN 6.6 G/DL (5.7-8.2); TOTAL PROTEIN 6.6 GM/DL (6.4-8.2); VITAMIN B12 LEVEL 408 PG/ML (211-911)
[2022-01-15 21:19] LABS: TOTAL 25(OH) VITAMIN D 40.5 NG/ML (20.0-100.0)
[2022-01-20 09:09] LABS: Methylmalonic Acid 207 nmol/L (0-378)
== END ==
LOC: M SFHCCAPE 08:20
PROVIDERS: ATTEND Physician Assistant
DX: E03.9 Hypothyroidism, unspecified (principal); M54.50 Low back pain, unspecified; R82.90 Unspecified abnormal findings in urine; R53.83 Other fatigue

== ENCOUNTER → 2022-03-13 | Outpatient (CLI) | payer BC, OTHER | LOC: M PLAIMG 11:05 | PROVIDERS: ATTEND Physician Assistant | DX: R10.31 Right lower quadrant pain (principal); M50.222 Other cervical disc displacement at C5-C6 level ==

== ENCOUNTER → 2022-03-17 | Outpatient (CLI) | payer BC, OTHER | LOC: M RAD 10:54 | PROVIDERS: ATTEND Physician Assistant | DX: R10.11 Right upper quadrant pain (principal); M79.605 Pain in left leg ==

== ENCOUNTER → 2022-03-19 | Outpatient (CLI) | payer BC, OTHER | LOC: M RAD 11:43 | PROVIDERS: ATTEND Physician Assistant Medical | DX: R10.11 Right upper quadrant pain (principal) ==

== ENCOUNTER → 2022-04-03 | Outpatient (CLI) | payer BC, OTHER ==
[~2022-04-03] MED LIST changes: +CALC-190 PO; +D-50TAB PO; +MELO15TA28 PO; +OMEG12003 PO
== END ==
LOC: M LABSMTC 11:16
PROVIDERS: ATTEND Anesthesiology
DX: Z01.812 Encounter for preprocedural laboratory examination (principal); Z20.822 Contact with and (suspected) exposure to COVID-19

== ENCOUNTER 2022-04-08 11:02 | Day surgery (SDC) | payer BC, OTHER ==
[~2022-04-08] VITALS: Ht 165.1 cm; Wt 88.0 kg
[~2022-04-08 11:02] MED LIST changes: +NS 1,000 ML IV ONE
[2022-04-08] MEDS ORDERED: propofoL 200 MG/20 ML VIAL As Ordered ONE (12:12)
[2022-04-08] MEDS ORDERED: LIDOCAINE 2% 100MG/5ML SDV (FOR ANES.) As Ordered ONE (12:12)
[2022-04-08 12:30] VITALS: BP 141/87
== END 2022-04-08 12:53 | disposition home or self-care (01) ==
LOC: M OPP 11:02
PROVIDERS: ATTEND Internal Medicine Gastroenterology
DX: R10.11 Right upper quadrant pain (principal); I48.91 Unspecified atrial fibrillation; I45.10 Unspecified right bundle-branch block; Z79.1 Long term (current) use of non-steroidal anti-inflammatories (NSAID); Z79.899 Other long term (current) drug therapy; Z85.3 Personal history of malignant neoplasm of breast; Z92.21 Personal history of antineoplastic chemotherapy; Z92.3 Personal history of irradiation; Z87.891 Personal history of nicotine dependence

== ENCOUNTER → 2022-04-16 | Outpatient (CLI) | payer BC, OTHER ==
[~2022-04-16] MED LIST changes: -NS 1,000 ML IV ONE
== END ==
LOC: M PLAIMG 07:10
PROVIDERS: ATTEND Physician Assistant
DX: S46.011A Strain of muscle(s) and tendon(s) of the rotator cuff of right shoulder, initial encounter (principal); X58.XXXA Exposure to other specified factors, initial encounter; Y92.9 Unspecified place or not applicable

== ENCOUNTER → 2022-04-16 | Outpatient (REF) | payer OTHER, BC | LOC: M SFHCWAGY 13:03 | PROVIDERS: ATTEND Obstetrics & Gynecology | DX: Z12.4 Encounter for screening for malignant neoplasm of cervix (principal) | CPT/HCPCS: 87624; G0123 ==

== ENCOUNTER → 2022-04-16 | Outpatient (CLI) | payer BC, OTHER | LOC: M WHC 08:33 | PROVIDERS: ATTEND Obstetrics & Gynecology | DX: Z53.9 Procedure and treatment not carried out, unspecified reason (principal) ==

== ENCOUNTER → 2022-04-16 | Outpatient (CLI) | payer OTHER | LOC: M PLAIMG 07:08 | PROVIDERS: ATTEND Physician Assistant | DX: S46.012A Strain of muscle(s) and tendon(s) of the rotator cuff of left shoulder, initial encounter (principal); X58.XXXA Exposure to other specified factors, initial encounter; Y92.9 Unspecified place or not applicable ==

== ENCOUNTER → 2022-04-24 | Outpatient (CLI) | payer BC, OTHER | LOC: M PLAIMG 07:00 | PROVIDERS: ATTEND Physician Assistant | DX: M50.21 Other cervical disc displacement, high cervical region (principal); M50.221 Other cervical disc displacement at C4-C5 level; M50.222 Other cervical disc displacement at C5-C6 level; M50.223 Other cervical disc displacement at C6-C7 level; M47.812 Spondylosis without myelopathy or radiculopathy, cervical region; M48.02 Spinal stenosis, cervical region ==

== ENCOUNTER → 2022-05-13 | Outpatient (REF) | payer OTHER ==
[2022-05-13 17:56] LABS: BASO % 0.5 % (0.0-1.0); EOS # 0.1 10^3/uL (0.0-0.5); HEMATOCRIT 41.7 % (36.0-47.0); HEMOGLOBIN 13.4 g/dl (12.0-15.5); LYMPH # 2.3 10^3/uL (1.5-5.0); LYMPH % 34.7 % (24.0-44.0); MEAN CORPUSCULAR HEMOGLOBIN 31.2 pg (27.0-33.0); MEAN CORPUSCULAR HGB CONC 32.1 g/dl (32.0-36.5); MEAN CORPUSCULAR VOLUME 97.2 fl (80.0-96.0); MONO # 0.5 10^3/uL (0.0-0.8); NEUTROPHILS # 3.6 10^3/uL (1.5-8.5); NEUTROPHILS % 55.5 % (36.0-66.0); PLATELET COUNT, AUTOMATED 247 10^3/uL (150-450); RED BLOOD COUNT 4.29 10^6/uL (4.00-5.40); WHITE BLOOD COUNT 6.6 10^3/uL (4.0-10.0)
[2022-05-13 18:33] LABS: ALBUMIN 4.1 G/DL (3.2-5.2); ALKALINE PHOSPHATASE 53 U/L (46-116); ALT/SGPT 34 U/L (7.0-40); AST/SGOT 31 U/L (<34); BILIRUBIN,TOTAL 0.4 MG/DL (0.3-1.2); BLOOD UREA NITROGEN 17 MG/DL (9-23); CALCIUM LEVEL 9.2 MG/DL (8.3-10.6); CARBON DIOXIDE LEVEL 29 MMOL/L (20-31); CHLORIDE LEVEL 105 MMOL/L (98-107); CREATININE FOR GFR 0.88 MG/DL (0.55-1.30); GLOMERULAR FILTRATION RATE > 60.0 (>45); GLUCOSE, FASTING 84 MG/DL (74-106); POTASSIUM SERUM 4.6 MMOL/L (3.5-5.1); SODIUM LEVEL 140 MMOL/L (136-145); TOTAL PROTEIN 6.8 G/DL (5.7-8.2)
== END ==
LOC: M SFHCCLAY 15:09
PROVIDERS: ATTEND Family Medicine
DX: Z01.818 Encounter for other preprocedural examination (principal)

== ENCOUNTER → 2022-05-16 | Outpatient (CLI) | payer BC, OTHER | LOC: M WHC 10:57 | PROVIDERS: ATTEND Obstetrics & Gynecology | DX: Z12.31 Encounter for screening mammogram for malignant neoplasm of breast (principal) ==

== ENCOUNTER → 2023-05-11 | Outpatient (REF) | payer OTHER ==
[2023-05-11 18:49] LABS: BASO % 0.6 % (0.0-1.0); EOS # 0.2 10^3/uL (0.0-0.5); EOS % 3.6 % (0.0-3.0); HEMATOCRIT 40.2 % (36.0-47.0); HEMOGLOBIN 13.5 g/dl (12.0-15.5); LYMPH # 2.2 10^3/uL (1.5-5.0); LYMPH % 42.8 % (24.0-44.0); MEAN CORPUSCULAR HEMOGLOBIN 31.8 pg (27.0-33.0); MEAN CORPUSCULAR HGB CONC 33.6 g/dl (32.0-36.5); MEAN CORPUSCULAR VOLUME 94.6 fl (80.0-96.0); MONO # 0.3 10^3/uL (0.0-0.8); MONO % 6.7 % (2.0-8.0); NEUTROPHILS # 2.3 10^3/uL (1.5-8.5); NEUTROPHILS % 46.1 % (36.0-66.0); PLATELET COUNT, AUTOMATED 244 10^3/uL (150-450); RED BLOOD COUNT 4.25 10^6/uL (4.00-5.40); WHITE BLOOD COUNT 5.1 10^3/uL (4.0-10.0)
[2023-05-11 18:51] LABS: LIPASE 40 U/L (12-53)
[2023-05-11 18:53] LABS: ALBUMIN 3.6 G/DL (3.2-5.2); ALKALINE PHOSPHATASE 50 U/L (46-116); ALT/SGPT 29 U/L (7.0-40); AST/SGOT 20 U/L (<34); BILIRUBIN,TOTAL 0.4 MG/DL (0.3-1.2); BLOOD UREA NITROGEN 22 MG/DL (9-23); CALCIUM LEVEL 8.8 MG/DL (8.3-10.6); CARBON DIOXIDE LEVEL 27 MMOL/L (20-31); CHLORIDE LEVEL 105 MMOL/L (98-107); CHOLESTEROL LEVEL 202 MG/DL (<200); CHOLESTEROL RISK RATIO 4.28 (<5); CREATININE FOR GFR 0.89 MG/DL (0.55-1.30); GLOMERULAR FILTRATION RATE > 60.0 (>45); GLUCOSE, FASTING 92 MG/DL (74-106); HDL CHOLESTEROL 47.1 MG/DL (>40); LDL CHOLESTEROL 109.3 MG/DL (<100); NON-HDL-C 154.9 MG/DL; POTASSIUM SERUM 4.2 MMOL/L (3.5-5.1); SODIUM LEVEL 140 MMOL/L (136-145); TOTAL PROTEIN 6.5 G/DL (5.7-8.2); TRIGLYCERIDES LEVEL 228 MG/DL (<150)
[2023-05-11 18:54] LABS: FREE T4 0.83 NG/DL (0.89-1.76); THYROID STIMULATING HORMONE 3.606 uIU/ML (0.55-4.78)
== END ==
LOC: M SFHCCAPE 07:15
PROVIDERS: ATTEND Physician Assistant Medical
DX: E03.9 Hypothyroidism, unspecified (principal); E78.2 Mixed hyperlipidemia; R07.9 Chest pain, unspecified; K21.9 Gastro-esophageal reflux disease without esophagitis

== ENCOUNTER → 2023-05-18 | Outpatient (CLI) | payer BC | LOC: M PLAIMG 09:30 | PROVIDERS: ATTEND Physician Assistant | DX: I77.810 Thoracic aortic ectasia (principal) ==

== ENCOUNTER → 2023-06-22 | Outpatient (CLI) | payer BC | LOC: M WHC 09:10 | PROVIDERS: ATTEND Physician Assistant Medical | DX: Z12.31 Encounter for screening mammogram for malignant neoplasm of breast (principal); Z85.3 Personal history of malignant neoplasm of breast ==

== ENCOUNTER → 2023-07-07 | Outpatient (REF) | payer BC ==
[2023-07-07 18:47] LABS: EOS # 0.1 10^3/uL (0.0-0.5); EOS % 3.4 % (0.0-3.0); HEMATOCRIT 38.8 % (36.0-47.0); HEMOGLOBIN 13.1 g/dl (12.0-15.5); LYMPH # 1.7 10^3/uL (1.5-5.0); LYMPH % 43.7 % (24.0-44.0); MEAN CORPUSCULAR HEMOGLOBIN 31.3 pg (27.0-33.0); MEAN CORPUSCULAR HGB CONC 33.8 g/dl (32.0-36.5); MEAN CORPUSCULAR VOLUME 92.8 fl (80.0-96.0); MONO # 0.4 10^3/uL (0.0-0.8); MONO % 9.9 % (2.0-8.0); NEUTROPHILS # 1.6 10^3/uL (1.5-8.5); NEUTROPHILS % 41.7 % (36.0-66.0); PLATELET COUNT, AUTOMATED 211 10^3/uL (150-450); RED BLOOD COUNT 4.18 10^6/uL (4.00-5.40); WHITE BLOOD COUNT 3.8 10^3/uL (4.0-10.0)
[2023-07-07 19:15] LABS: ALBUMIN 3.7 G/DL (3.2-5.2); ALKALINE PHOSPHATASE 52 U/L (46-116); ALT/SGPT 35 U/L (7.0-40); AST/SGOT 25 U/L (<34); BILIRUBIN,TOTAL 0.6 MG/DL (0.3-1.2); BLOOD UREA NITROGEN 12 MG/DL (9-23); CALCIUM LEVEL 8.6 MG/DL (8.3-10.6); CARBON DIOXIDE LEVEL 26 MMOL/L (20-31); CHLORIDE LEVEL 105 MMOL/L (98-107); CHOLESTEROL LEVEL 215 MG/DL (<200); CHOLESTEROL RISK RATIO 4.76 (<5); CREATININE FOR GFR 0.81 MG/DL (0.55-1.30); FREE T4 0.86 NG/DL (0.89-1.76); GLOMERULAR FILTRATION RATE > 60.0 (>45); GLUCOSE, FASTING 99 MG/DL (74-106); HDL CHOLESTEROL 45.1 MG/DL (>40); LDL CHOLESTEROL 124.3 MG/DL (<100); NON-HDL-C 169.9 MG/DL; POTASSIUM SERUM 4.2 MMOL/L (3.5-5.1); SODIUM LEVEL 138 MMOL/L (136-145); THYROID STIMULATING HORMONE 6.059 uIU/ML (0.55-4.78); TOTAL PROTEIN 6.5 G/DL (5.7-8.2); TRIGLYCERIDES LEVEL 228 MG/DL (<150)
== END ==
LOC: M SFHCCAPE 07:32
PROVIDERS: ATTEND Physician Assistant Medical
DX: E03.9 Hypothyroidism, unspecified (principal); I77.810 Thoracic aortic ectasia; E78.2 Mixed hyperlipidemia

== ENCOUNTER → 2023-10-02 | Outpatient (REF) | payer BC ==
[2023-10-06 12:33] LABS: HPV APTIMA Not Detected (Not Detected)
== END ==
LOC: M SFHCWAGY 15:09
PROVIDERS: ATTEND Obstetrics & Gynecology
DX: Z12.4 Encounter for screening for malignant neoplasm of cervix (principal)
CPT/HCPCS: 87624; G0123

== ENCOUNTER → 2023-11-18 | Outpatient (REF) | payer BC ==
[2023-11-18 18:35] LABS: BASO % 0.4 % (0.0-1.0); EOS # 0.2 10^3/uL (0.0-0.5); EOS % 4.7 % (0.0-3.0); HEMOGLOBIN 13.1 g/dl (12.0-15.5); LYMPH % 42.3 % (24.0-44.0); MEAN CORPUSCULAR HGB CONC 33.6 g/dl (32.0-36.5); MEAN CORPUSCULAR VOLUME 95.1 fl (80.0-96.0); MONO # 0.4 10^3/uL (0.0-0.8); MONO % 7.9 % (2.0-8.0); NEUTROPHILS # 2.1 10^3/uL (1.5-8.5); NEUTROPHILS % 44.3 % (36.0-66.0); PLATELET COUNT, AUTOMATED 223 10^3/uL (150-450); WHITE BLOOD COUNT 4.7 10^3/uL (4.0-10.0)
[2023-11-18 19:01] LABS: THYROID STIMULATING HORMONE 1.895 uIU/ML (0.55-4.78)
[2023-11-18 19:02] LABS: FREE T4 0.93 NG/DL (0.89-1.76)
[2023-11-18 19:05] LABS: ALBUMIN 3.6 G/DL (3.2-5.2); ALKALINE PHOSPHATASE 49 U/L (46-116); ALT/SGPT 20 U/L (7.0-40); AST/SGOT 16 U/L (<34); BILIRUBIN,TOTAL 0.6 MG/DL (0.3-1.2); BLOOD UREA NITROGEN 14 MG/DL (9-23); CALCIUM LEVEL 9.2 MG/DL (8.3-10.6); CARBON DIOXIDE LEVEL 28 MMOL/L (20-31); CHLORIDE LEVEL 109 MMOL/L (98-107); CHOLESTEROL LEVEL 236 MG/DL (<200); CHOLESTEROL RISK RATIO 5.31 (<5); GLOMERULAR FILTRATION RATE > 60.0 (>45); GLUCOSE, FASTING 87 MG/DL (74-106); HDL CHOLESTEROL 44.4 MG/DL (>40); LDL CHOLESTEROL 159.4 MG/DL (<100); NON-HDL-C 191.6 MG/DL; POTASSIUM SERUM 4.5 MMOL/L (3.5-5.1); SODIUM LEVEL 142 MMOL/L (136-145); TOTAL PROTEIN 6.5 G/DL (5.7-8.2); TRIGLYCERIDES LEVEL 161 MG/DL (<150)
== END ==
LOC: M SFHCCAPE 07:22
PROVIDERS: ATTEND Physician Assistant Medical
DX: E03.9 Hypothyroidism, unspecified (principal); E78.2 Mixed hyperlipidemia

== ENCOUNTER → 2024-05-09 | Outpatient (CLI) | payer BC | LOC: M CLY 13:50 | PROVIDERS: ATTEND Physician Assistant Medical | DX: M54.16 Radiculopathy, lumbar region (principal) ==

== ENCOUNTER → 2024-05-12 | Outpatient (REF) | payer BC ==
[2024-05-12 18:45] LABS: ALBUMIN 3.7 G/DL (3.2-5.2); ALKALINE PHOSPHATASE 48 U/L (35-104); ALT/SGPT 19 U/L (7.0-40); AST/SGOT 14 U/L (<34); BILIRUBIN,TOTAL 0.5 MG/DL (0.3-1.2); BLOOD UREA NITROGEN 21 MG/DL (9-23); CALCIUM LEVEL 8.7 MG/DL (8.3-10.6); CARBON DIOXIDE LEVEL 28 MMOL/L (20-31); CHLORIDE LEVEL 108 MMOL/L (98-107); CHOLESTEROL LEVEL 260 MG/DL (<200); CHOLESTEROL RISK RATIO 5.03 (<5); CREATININE FOR GFR 0.83 MG/DL (0.55-1.30); GLOMERULAR FILTRATION RATE > 60.0 (>45); GLUCOSE, FASTING 93 MG/DL (74-106); HDL CHOLESTEROL 51.6 MG/DL (>40); LDL CHOLESTEROL 177.4 MG/DL (<100); NON-HDL-C 208.4 MG/DL; POTASSIUM SERUM 4.3 MMOL/L (3.5-5.1); SODIUM LEVEL 143 MMOL/L (136-145); TRIGLYCERIDES LEVEL 155 MG/DL (<150)
[2024-05-12 18:47] LABS: FREE T4 0.96 NG/DL (0.89-1.76); THYROID STIMULATING HORMONE 2.881 uIU/ML (0.55-4.78)
== END ==
LOC: M SFHCCAPE 07:20
PROVIDERS: ATTEND Physician Assistant Medical
DX: E78.5 Hyperlipidemia, unspecified (principal); E03.9 Hypothyroidism, unspecified; E78.2 Mixed hyperlipidemia

== ENCOUNTER → 2024-06-22 | Outpatient (CLI) | payer BC | LOC: M WHC 11:28 | PROVIDERS: ATTEND Physician Assistant Medical | DX: Z12.31 Encounter for screening mammogram for malignant neoplasm of breast (principal); R92.313 Mammographic fatty tissue density, bilateral breasts ==

== ENCOUNTER → 2024-09-20 | Outpatient (CLI) | payer BC | LOC: M PLAIMG 07:07 | PROVIDERS: ATTEND Orthopaedic Surgery | DX: M25.562 Pain in left knee (principal); M17.12 Unilateral primary osteoarthritis, left knee; M25.462 Effusion, left knee; R93.6 Abnormal findings on diagnostic imaging of limbs ==

== ENCOUNTER → 2024-11-15 | Outpatient (REF) | payer BC ==
[~2024-11-15] MED LIST changes: -IBUP-1022 PO; +IBUP600T42 PO
[2024-11-15 19:05] LABS: ALT/SGPT 19.0 U/L (7.0-40); AST/SGOT 20.0 U/L (<34); CALCIUM LEVEL 9.0 MG/DL (8.3-10.6); CARBON DIOXIDE LEVEL 29.0 MMOL/L (20-31); CHLORIDE LEVEL 106.0 MMOL/L (98-107); CHOLESTEROL LEVEL 231.0 MG/DL (<200); CHOLESTEROL RISK RATIO 4.52 (<5); CREATININE FOR GFR 0.84 MG/DL (0.55-1.30); GLOMERULAR FILTRATION RATE 77.6 (>45); LDL CHOLESTEROL 140.3 MG/DL (<100); NON-HDL-C 179.9 MG/DL; POTASSIUM SERUM 4.1 MMOL/L (3.5-5.1); SODIUM LEVEL 141.0 MMOL/L (136-145); TRIGLYCERIDES LEVEL 198.0 MG/DL (<150)
[2024-11-15 19:07] LABS: FREE T4 0.96 NG/DL (0.89-1.76)
[2024-11-15 19:09] LABS: BASO # 0.1 10^3/uL (0.0-0.2); BASO % 1.1 % (0.0-1.0); EOS # 0.2 10^3/uL (0.0-0.5); EOS % 3.7 % (0.0-3.0); LYMPH # 2.1 10^3/uL (1.5-5.0); LYMPH % 49.1 % (24.0-44.0); MONO # 0.3 10^3/uL (0.0-0.8); MONO % 7.8 % (2.0-8.0); NEUTROPHILS # 1.7 10^3/uL (1.5-8.5); NEUTROPHILS % 38.1 % (36.0-66.0); PLATELET COUNT, AUTOMATED 219 10^3/uL (150-450)
== END ==
LOC: M SFHCCAPE 07:10
PROVIDERS: ATTEND Physician Assistant Medical
DX: K21.9 Gastro-esophageal reflux disease without esophagitis (principal); E03.9 Hypothyroidism, unspecified; E78.2 Mixed hyperlipidemia